=== PATIENT | female | born 1960 | race Caucasian/White ===

== ENCOUNTER 2021-01-24 02:04 | Day surgery (SDC) | payer OTHER, SELFPAY ==
[2021-01-10 13:30] VITALS: BMI 37.3
--- NOTE | 2021-01-24 07:13 | PM.HPGS ---
History of Present Illness History of Present Illness Consent: Risks, benefits, and alternatives have been discussed and questions answered. Patient agrees to proceed with procedure. Chief complaint: positive cologuard Narrative: Celsa Coyle is a 60 year old female here for colon cancer screening. She had a colic or test that was positive Review of Systems Review of Systems: All systems reviewed & are unremarkable except as noted in HPI and below PMFSH Past Medical History Medical History HTN (hypertension) Hyperlipidemia Obesity Surgical History Surgical History History of section Social History Social History Smoking packs per day: 0.25 Smoking cigarettes per day: 5.0 Years smoked: 10 Smoking pack-years: 2.50 Smoking status: Light tobacco smoker Tobacco type: cigarettes Drinks per week: 2 Alcohol use details: occasional use 10-12 per month Substance use: never Substance use type: does not use Living arrangements: with family Additional living arrangements comments: lives with spouse Ga Gender identity (if verbalized by the patient): Female Sexual Orientation (if Verbalized by the Patient): Straight or Heterosexual Meds Home Medications and Allergies Home Medications Medication Instructions Recorded Confirmed Type albuterol sulfate [ProAir HFA] 1 - 2 puff INHALATION PRN PRN 01/10/21 01/24/21 History atorvastatin 20 mg PO DAILY 01/10/21 01/24/21 History hydrochlorothiazide 12.5 mg PO DAILY 01/10/21 01/24/21 History lisinopril 10 mg PO DAILY 01/10/21 01/24/21 History Allergies Allergy/AdvReac Type Severity Reaction Status Date / Time No Known Allergies Allergy Verified 01/24/21 07:41 Exam Resp: Auscultation: clear to auscultation bilaterally Cardio: Rate: regular rate Rhythm: regular rhythm GI: GI Palp: Yes Soft to palpation and No Tenderness to palpation present (GI) Assessment and Plan Assessment and plan (1) Colon cancer screening: Code(s): Z12.11 - Encounter for screening for malignant neoplasm of colon Status: Acute Assessment and Plan: Colonoscopy with possible biopsy or polypectomy or cautery or injection of substances.
[2021-01-24 07:30] VITALS: BP 149/79; PULSE 71; RESP 18; TEMP 36.2; O2SAT 97; BMI 37.5
[2021-01-24] MEDS: LACTATED RINGERS 1,000 ML 150 ML IV CONT (07:49)
--- NOTE | 2021-01-24 07:57 | WPDANESEPPF ---
Anes - Initial Pre Proc Eval Procedure: Operation Date: 01/24/21 08:30 Proposed Procedures p Colonoscopy - Perico Escalera MD Date/Time: 01/24/21 07:57 Surgeon: Perico Escalera MD Pre Op Diagnosis: positive cologuard Patient Data Age: 60 Gender: F Height: 1.78 m Weight: 118.7 kg Last Vital Signs Temp 36.2 C L 01/24/21 07:30 Pulse 71 01/24/21 07:30 Resp 18 01/24/21 07:30 BP 149/79 H 01/24/21 07:30 Pulse Ox 97 01/24/21 07:30 Allergies Allergy/AdvReac Type Severity Reaction Status Date / Time No Known Allergies Allergy Verified 01/24/21 07:41 Home Medications Medication Instructions Recorded Confirmed Type albuterol sulfate [ProAir HFA] 1 - 2 puff INHALATION PRN PRN 01/10/21 01/24/21 History atorvastatin 20 mg PO DAILY 01/10/21 01/24/21 History hydrochlorothiazide 12.5 mg PO DAILY 01/10/21 01/24/21 History lisinopril 10 mg PO DAILY 01/10/21 01/24/21 History Patient hx anesthesia problems: none Family hx anesthesia problems: none [facility] Past Medical History Medical History (Updated 01/24/21 @ 07:58 by Mushtaq Connell MD) HTN (hypertension) Hyperlipidemia Obesity Surgical History Surgical History (Updated 01/24/21 @ 07:58 by Mushtaq Connell MD) History of section Social History Social History Smoking packs per day: 0.25 Smoking cigarettes per day: 5.0 Years smoked: 10 Smoking pack-years: 2.50 Smoking status: Light tobacco smoker Tobacco type: cigarettes Drinks per week: 2 Alcohol use details: occasional use 10-12 per month Substance use: never Substance use type: does not use Living arrangements: with family Additional living arrangements comments: lives with spouse Ga Gender identity (if verbalized by the patient): Female Sexual Orientation (if Verbalized by the Patient): Straight or Heterosexual Anes - Eval Final PreProcedure Day of Procedure 01/24/21 07:57 Patient weight: obese Heart: regular rate and rhythm Lungs: clear to auscultation Airway: Mallampati scale class II Neurological: alert and oriented Last oral intake: >/= 8 hours ASA classification: III Emergent: no Anesthetic plan: proceed Anesthesia type and monitoring: general GIVS and standard monitoring Informed Consent: The patient's anesthetic plan and its attendant risks and benefits were discussed with the patient/family/POA. Questions were solicited and answers provided to the satisfaction of the patient/family/POA.
[2021-01-24 09:07] VITALS: BP 144/72; PULSE 64; RESP 24; O2SAT 99
[2021-01-24 09:17] VITALS: BP 129/68; PULSE 60; RESP 19; O2SAT 98
[2021-01-24 09:27] VITALS: BP 110/54; PULSE 62; RESP 19; O2SAT 98
== END 2021-01-24 09:39 | disposition home or self-care (01) ==
PROVIDERS: PCP Internal Medicine; Visit Provider Internal Medicine Gastroenterology
PROC: 0DJD8ZZ Inspection of Lower Intestinal Tract, Via Natural or Artificial Opening Endoscopic (ICD-10-PCS; CPT 45378; principal; 2021-01-24 08:30)
DX: Z12.11 Encounter for screening for malignant neoplasm of colon (principal); K62.1 Rectal polyp; K63.5 Polyp of colon; I10 Essential (primary) hypertension; E78.5 Hyperlipidemia, unspecified; Z79.51 Long term (current) use of inhaled steroids; E66.9 Obesity, unspecified; Z68.37 Body mass index [BMI] 37.0-37.9, adult; F17.210 Nicotine dependence, cigarettes, uncomplicated
CPT/HCPCS: 45380; 45385; 88305; J2704; J7120